=== PATIENT | female | born 1935 | race Caucasian/White ===

== ENCOUNTER → 2022-09-21 13:10 | Outpatient (CLI) | payer MEDICARE, SELFPAY ==
--- NOTE | 2022-09-21 | DI.MRI.S_ITS ---
PROCEDURE: MR LUMBAR SPINE WO CON INDICATIONS: Radiculopathy, lumbar region TECHNIQUE: Noncontrast sagittal T1 spin echo and T2 fast echo, sagittal STIR, and T2 fast spin echo through the lumbar spine. In cases with scoliosis, additional coronal T2 fast spin echo may be performed. In this patient, additional oblique sagittal STIR and T1 weighted images were obtained through the sacrum. COMPARISON: [facility] Outside Film, CR, XR LUMBAR SPINE 2 OR 3 VIEWS, 08/20/2022, 9:09. FINDINGS: Image quality: This examination is limited by involuntary motion artifact. Alignment and Curvature: There is normal bony alignment. Bone Marrow: Marrow is of normal overall signal. There is a moderately displaced fracture seen at the S1-S2 level, with associated surrounding edema. The right sacral ala demonstrates focal edema, as on series 9, image 8. Spinal Cord: Conus medullaris terminates at the L1 level. Visualized cord demonstrates normal signal and size. Paraspinous Soft Tissues: No paravertebral masses. A 3.3 cm right adnexal cyst is seen, as on series 6, image 15. T12-L1: Normal appearance. L1-L2: At least moderate loss of disc height and disc signal can be seen. Reactive marrow endplate changes are seen, which are hyperintense on T1-weighted and T2-weighted imaging and most consistent with fatty metaplasia (Modic type II changes). Mild to moderate disc bulge is seen. No significant neural foraminal or central canal narrowing can be seen. L2-L3: At least moderate loss of disc height and disc signal can be seen. Reactive marrow endplate changes are seen, which are hyperintense on T1-weighted and T2-weighted imaging and most consistent with fatty metaplasia (Modic type II changes). Mild generalized disc bulge is seen. Mild facet no significant neural foraminal narrowing can be seen. No significant central canal narrowing is seen. L3-L4: At least moderate loss of disc height and disc signal can be seen at this level. Reactive marrow endplate changes are seen, which are hyperintense on T1-weighted and T2-weighted imaging and most consistent with fatty metaplasia (Modic type II changes). Moderate generalized disc bulge is seen. There is a superimposed central disc protrusion. Mild to moderate facet hypertrophy is seen. Mild to moderate bilateral neural foraminal narrowing is seen. Mild central canal narrowing is seen. L4-L5: There is at least moderate loss of disc height and disc signal seen at this level. Moderate generalized disc bulge is seen. There is a superimposed central disc protrusion. Postoperative changes are seen at this level, with removal of portions of posterior elements. Moderate facet joint hypertrophy is seen. Associated hypertrophy of the ligamentum flavum can be seen. Moderate bilateral neural foraminal narrowing is seen. Mild to moderate central canal narrowing is seen. L5-S1: Moderate loss of disc height is seen. Loss of disc signal is seen. At least moderate disc bulge is seen, which is eccentric the left. There is at least moderate bilateral neural foraminal narrowing seen, right worse than left. There is a degree of compression seen upon the exiting right L5 nerve root. Moderate central canal narrowing is seen. IMPRESSION: There is a complex insufficiency fracture seen of the sacrum at the S2 level, with focal edema seen within the right sacral ala. When clinically appropriate, please consider a dedicated follow-up CT for further evaluation.3 3.3 cm right adnexal cyst seen. In a patient of this age, differential diagnosis includes cystic ovarian neoplasm. When clinically appropriate, please consider a dedicated pelvic ultrasound for further evaluation. Multiple levels of underlying lumbar spine degenerative change can be seen. Dictated by: Bossman Anderson M.D. on 09/21/2022 at 18:02 Approved by: Bossman Anderson M.D. on 09/21/2022 at 18:07
== END ==
PROVIDERS: Referring Provider Physical Medicine & Rehabilitation Pain Medicine; Visit Provider Physical Medicine & Rehabilitation Pain Medicine
DX: M47.26 Other spondylosis with radiculopathy, lumbar region (principal); M84.48XA Pathological fracture, other site, initial encounter for fracture; N94.89 Other specified conditions associated with female genital organs and menstrual cycle
CPT/HCPCS: 72148

== ENCOUNTER → 2022-10-06 08:57 | Outpatient (CLI) | payer MEDICARE, SELFPAY ==
[2022-10-06 10:31] LABS: Hematocrit 33.1 % (36-46); Hemoglobin 10.7 g/dL (12.0-16.0)
[2022-10-06 10:45] LABS: Creatinine Urine Random 101.4 mg/dL; Protein (Total) Urine Random 18 mg/dL (0-12); Protein Creatinine Ratio Urine 0.17 GRAM/24H
[2022-10-06 11:05] LABS: BUN Creatinine Ratio 17.1 (6-22); Blood Urea Nitrogen 22 mg/dL (7-17); Calcium 9.1 mg/dL (8.4-10.2); Carbon Dioxide 28 mmol/L (22-32); Chloride 103 mmol/L (98-107); Estimated Glomerular Filt Rate 41 mL/min (>60); Glucose 84 mg/dL (80-110); HEMOLYSIS < 15 (0-50); Potassium 4.8 mmol/L (3.4-5.1); Sodium 139 mmol/L (137-145)
== END ==
PROVIDERS: Referring Provider Student in an Organized Health Care Education/Training Program; Visit Provider Student in an Organized Health Care Education/Training Program
DX: N05.9 Unspecified nephritic syndrome with unspecified morphologic changes (principal); D64.9 Anemia, unspecified; R80.9 Proteinuria, unspecified
CPT/HCPCS: 36415; 80048; 82570; 84156; 85014; 85018

== ENCOUNTER → 2022-12-29 14:40 | Outpatient (CLI) | payer MEDICARE, SELFPAY ==
[2022-12-29 15:28] LABS: Hematocrit 36.5 % (36-46); Hemoglobin 12.2 g/dL (12.0-16.0)
[2022-12-29 15:44] LABS: HEMOLYSIS < 15 (0-50); Iron 74 ug/dL (37-170)
[2022-12-29 15:45] LABS: Blood Urea Nitrogen 26 mg/dL (7-17); Calcium 9.1 mg/dL (8.4-10.2); Carbon Dioxide 26 mmol/L (22-32); Chloride 107 mmol/L (98-107); Estimated Glomerular Filt Rate 45 mL/min (>60); Glucose 92 mg/dL (80-110); HEMOLYSIS < 15 (0-50); Potassium 4.6 mmol/L (3.4-5.1); Sodium 142 mmol/L (137-145)
[2022-12-29 15:54] LABS: Percent Iron Saturation 27 % (15-50); Total Iron Binding Capacity 272 ug/dL (265-497); Transferrin 215 mg/dL (206-381)
[2022-12-29 16:16] LABS: Ferritin 70 ng/mL (11-264)
[2022-12-29 16:20] LABS: Appearance Urine UA SL CLOUDY; Bilirubin Urine UA NEGATIVE (NEGATIVE); Color Urine UA YELLOW; Glucose Urine UA NEGATIVE (Negative); Ketones Urine UA NEGATIVE (NEGATIVE); Leukocyte Esterase Urine UA 1+ (NEGATIVE); Nitrite Urine UA POSITIVE (Negative); Occult Blood Urine UA NEGATIVE (Negative); Protein Urine UA NEGATIVE (Negative); Specific Gravity Urine UA 1.015 (1.000-1.035); Urobilinogen Urine UA 0.2 E.U./dL (0.2)
[2022-12-29 16:22] LABS: pH Urine UA 5.5 (4.5-8.0)
[2022-12-29 17:05] LABS: Bacteria Urine Many (>30); Culture Indicated Urine Specimen Cultured; RBC Urine None Seen (0-5/HPF); WBC Urine 30-100/HPF (0-5/HPF)
[2022-12-29 18:45] LABS: Protein (Total) Urine Random < 5 mg/dL (0-12); Protein Creatinine Ratio Urine 0.06 GRAM/24H
[2023-01-05 06:36] LABS: Parathyroid Hormone Int 46 pg/mL (15-65)
== END ==
PROVIDERS: Referring Provider Student in an Organized Health Care Education/Training Program; Visit Provider Student in an Organized Health Care Education/Training Program
DX: D64.9 Anemia, unspecified (principal); N05.9 Unspecified nephritic syndrome with unspecified morphologic changes; D50.0 Iron deficiency anemia secondary to blood loss (chronic); N25.81 Secondary hyperparathyroidism of renal origin; N30.00 Acute cystitis without hematuria; R80.9 Proteinuria, unspecified
CPT/HCPCS: 36415; 80048; 81001; 82570; 82728; 83540; 83550; 83970; 84156; 85014; 85018; 87077; 87086; 87186